=== PATIENT | female | born 1980 | race Caucasian/White ===

== ENCOUNTER 2021-12-07 12:54 | Emergency (ER) | payer MEDICAID ==
[~2021-12-07] VITALS: Ht 157.5 cm; Wt 78.9 kg
== END 2021-12-07 16:10 | disposition home or self-care (01) ==
LOC: ED 12:54
DX: F10.20 Alcohol dependence, uncomplicated (principal); J44.9 Chronic obstructive pulmonary disease, unspecified
CPT/HCPCS: 99284; A9270-GY

== ENCOUNTER 2021-12-13 02:41 | Emergency (ER) | payer MEDICAID ==
[~2021-12-13] VITALS: Ht 157.5 cm; Wt 79.4 kg
--- OUTSIDE RECORDS SUMMARY | 2021-12-13 02:42 | XMS ---
PreManage Notification: EVERARDO COKER Security Geriatric Assistant Events No recent Security Events currently on file CRITERIA MET - [facility] - 2 Visits in 30 Days CARE PROVIDERS There are no care providers on record at this time. Hermelinda has no Care Guidelines for this patient. [facility] VISIT COUNT (12 MO.) 2 [facility] [place] [facility] TOTAL 2 NOTE: Visits indicate total known visits. ED/[facility] VISIT TRACKING (12 MO.) 12/13/2021 02:[address] [facility] [place] TYPE: Emergency COMPLAINT: - SUICIDAL 12/07/2021 12:[address] [facility] [place] TYPE: Emergency COMPLAINT: - ALCOHOL WITHDRAWAL DIAGNOSES: - Chronic obstructive pulmonary disease, unspecified - Alcohol dependence, uncomplicated INPATIENT VISIT TRACKING (12 MO.) No inpatient visits to display in this time frame [email or web address]
== END 2021-12-13 06:30 | disposition home or self-care (01) ==
LOC: ED 02:41
DX: R45.851 Suicidal ideations (principal); Z59.819 Housing instability, housed unspecified; J44.9 Chronic obstructive pulmonary disease, unspecified
CPT/HCPCS: 36415; 80053; 81001; 84443; 84703; 85025; 99285; G0480